=== PATIENT | female | born 1975 | race Caucasian/White ===

== ENCOUNTER 2017-02-26 18:34 | Emergency (ER) | payer SELFPAY ==
[~2017-02-26] VITALS: Ht 170.2 cm; Wt 75.0 kg
[~2017-02-26 18:34] MED LIST: IBUPROFEN600 MG PO; KEFLEX500 MG PO; NAPROSYN500 MG PO; NORCO1 TA2 PO; ORPHENADRINE100 MG PO; PAXIL40 MG PO; PERCOCET 5/325M1 TAB PO; PRENATAL FORTE PO; PROCARDIA XL30 MG PO; TYLENOL500 MG PO
[2017-02-26] MEDS ORDERED: [UNRECOGNIZED DRUG - CODE] OD (19:16)
[2017-02-26] MEDS ORDERED: PERCOCET 5/325M1 TAB PO (19:21)
[2017-02-26 19:30] VITALS: BP 135/89
== END 2017-02-26 19:30 | disposition home or self-care (01) | DRG 125 ==
LOC: ED 18:34
DX: S05.01XA Injury of conjunctiva and corneal abrasion without foreign body, right eye, initial encounter (principal); W22.09XA Striking against other stationary object, initial encounter

== ENCOUNTER 2017-04-17 12:34 | Emergency (ER) | payer OTHER ==
[~2017-04-17] VITALS: Ht 172.7 cm; Wt 75.0 kg
[~2017-04-17 12:34] MED LIST changes: +[UNRECOGNIZED DRUG - CODE] OD
[2017-04-17] MEDS ORDERED: MULTI VIT PO (13:00)
[2017-04-17] MEDS ORDERED: MOTRIN800 MG PO (13:15)
[2017-04-17 13:24] VITALS: BP 116/71
== END 2017-04-17 13:24 | disposition home or self-care (01) | DRG 563 ==
LOC: ED 12:34
DX: S83.206A Unspecified tear of unspecified meniscus, current injury, right knee, initial encounter (principal); M32.9 Systemic lupus erythematosus, unspecified; F41.9 Anxiety disorder, unspecified; J45.909 Unspecified asthma, uncomplicated; X50.3XXA Overexertion from repetitive movements, initial encounter; Y93.01 Activity, walking, marching and hiking

== ENCOUNTER 2018-03-16 21:33 | Emergency (ER) | payer BC ==
[~2018-03-16] VITALS: Ht 170.2 cm; Wt 75.0 kg
[~2018-03-16 21:33] MED LIST changes: +MOTRIN800 MG PO; +MULTI VIT PO
[2018-03-16 22:26] LABS: HEMATOCRIT 43.8 % (37.0-47.0); HEMOGLOBIN 14.2 g/dl (12.0-16.0); IMMATURE GRANULOCYTES 0.3 % (0.0-1.0); MEAN CELL VOLUME 91.3 fL CALC (80.0-100.0); MEAN CORPUSCULAR HGB 29.6 pG CALC (26.0-32.0); MEAN CORPUSCULAR HGB CONC 32.4 g/L CALC (32.0-36.0); NEUT# 4.22 thou/uL (2.00-7.15); RED BLOOD COUNT 4.8 mill/uL (4.20-5.60); URINE BILIRUBIN - DIPSTICK NEGATIVE (NEGATIVE); URINE BLOOD DIPSTICK NEGATIVE (NEGATIVE); URINE COLOR YELLOW; URINE GLUCOSE - DIPSTICK NEGATIVE (NEGATIVE); URINE KETONE NEGATIVE (NEGATIVE); URINE LEUK ESTERASE NEGATIVE (NEGATIVE); URINE NITRITE - DIPSTICK NEGATIVE (Negative); URINE PH 5.5 (4.5-8.0); URINE PROTEIN - DIPSTICK NEGATIVE (NEG-TRACE); URINE SPECIFIC GRAVITY <=1.005; URINE UROBILINOGEN - DIPSTICK 0.2 E.U./dL (0.2)
[2018-03-16 22:31] LABS: URINE CLARITY CLEAR
[2018-03-16 22:42] LABS: ANION GAP 17 (6-22 (CALC)); BUN 9 mg/dL (7-17); BUN/CREATININE RATIO 12 (12-20 (CALC)); CARBON DIOXIDE 24 mmol/l (22-30); CHLORIDE 102 mmol/l (95-108); CREATININE 0.7 mg/dL (0.5-1.0); GFR > 60 ML/MIN (>=60 (CALC)); GFR FOR AFR.AMER. > 60 ML/MIN (>=60 (CALC)); POTASSIUM 3.9 mmol/l (3.5-5.1); SODIUM 139 mmol/l (137-146)
[2018-03-16 22:45] VITALS: BP 117/73
[2018-03-16] MEDS ORDERED: PAXIL40 MG PO (22:51)
[2018-03-16] MEDS ORDERED: HYDROXYZ HCL25 MG PO (22:51)
== END 2018-03-16 23:03 | disposition home or self-care (01) | DRG 103 ==
LOC: ED 21:33
PROVIDERS: Family Medicine
DX: R51 Headache (principal); F41.9 Anxiety disorder, unspecified; I10 Essential (primary) hypertension; Z79.899 Other long term (current) drug therapy

== ENCOUNTER 2018-06-08 13:26 | Emergency (ER) | payer BC ==
[~2018-06-08] VITALS: Ht 170.2 cm; Wt 72.7 kg
[~2018-06-08 13:26] MED LIST changes: +HYDROXYZ HCL25 MG PO
[2018-06-08 14:29] LABS: HEMATOCRIT 44.5 % (37.0-47.0); HEMOGLOBIN 14.8 g/dl (12.0-16.0); IMMATURE GRANULOCYTES 0.3 % (0.0-5.0); MEAN CELL VOLUME 91.4 fL CALC (80.0-100.0); MEAN CORPUSCULAR HGB 30.4 pG CALC (26.0-32.0); MEAN CORPUSCULAR HGB CONC 33.3 g/L CALC (32.0-36.0); NEUT# 3.5 thou/uL (2.00-7.15); RED BLOOD COUNT 4.87 mill/uL (4.20-5.60); RED CELL DISTRI WIDTH 13.2 % (11.5-15.5)
[2018-06-08 14:48] LABS: ALBUMIN 4.6 g/dL (3.2-5.0); ALKALINE PHOSPHATASE 101 u/l (38-126); ANION GAP 22 (6-22 (CALC)); BUN 11 mg/dL (7-17); BUN/CREATININE RATIO 15 (12-20 (CALC)); CARBON DIOXIDE 22 mmol/l (22-30); CHLORIDE 102 mmol/l (95-108); CREATININE 0.7 mg/dL (0.5-1.0); GFR > 60 ML/MIN (>=60 (CALC)); GFR FOR AFR.AMER. > 60 ML/MIN (>=60 (CALC)); POTASSIUM 4.4 mmol/l (3.5-5.1); SGOT/AST 23 u/l (14-36); SGPT/ALT 25 u/l (9-52); SODIUM 142 mmol/l (137-146)
[2018-06-08] MEDS ORDERED: ATIVAN0.5 MG PO (14:56)
[2018-06-08 15:03] VITALS: BP 150/97
== END 2018-06-08 15:19 | disposition home or self-care (01) | DRG 880 ==
LOC: ED 13:26
PROVIDERS: Emergency Medicine
DX: F41.9 Anxiety disorder, unspecified (principal); J45.909 Unspecified asthma, uncomplicated
CPT/HCPCS: J2060

== ENCOUNTER 2018-12-13 16:36 | Emergency (ER) | payer SELFPAY ==
[~2018-12-13] VITALS: Ht 170.2 cm; Wt 77.3 kg
[~2018-12-13 16:36] MED LIST changes: +ATIVAN0.5 MG PO
[2018-12-13] MEDS ORDERED: VOLTAREN - GENE75 MG PO (18:01)
[2018-12-13] MEDS ORDERED: TRAMADOL HCL50 MG PO (18:01)
[2018-12-13 18:07] VITALS: BP 110/72
== END 2018-12-13 18:15 | disposition home or self-care (01) | DRG 538 ==
LOC: ED 16:36
DX: S76.012A Strain of muscle, fascia and tendon of left hip, initial encounter (principal); J45.909 Unspecified asthma, uncomplicated; F41.0 Panic disorder [episodic paroxysmal anxiety]; X58.XXXA Exposure to other specified factors, initial encounter

== ENCOUNTER 2019-03-04 02:41 | Emergency (ER) | payer OTHER ==
[~2019-03-04] VITALS: Ht 170.2 cm; Wt 77.2 kg
[~2019-03-04 02:41] MED LIST changes: +TRAMADOL HCL50 MG PO; +VOLTAREN - GENE75 MG PO
[2019-03-04 03:47] LABS: HEMATOCRIT 45.6 % (37.0-47.0); HEMOGLOBIN 14.7 g/dl (12.0-16.0); IMMATURE GRANULOCYTES 0.2 % (0.0-5.0); MEAN CELL VOLUME 93.4 fL CALC (80.0-100.0); MEAN CORPUSCULAR HGB 30.1 pG CALC (26.0-32.0); MEAN CORPUSCULAR HGB CONC 32.2 g/L CALC (32.0-36.0); NEUT# 6.97 thou/uL (2.00-7.15); RED BLOOD COUNT 4.88 mill/uL (4.20-5.60); RED CELL DISTRI WIDTH 12.6 % (11.5-15.5)
[2019-03-04 03:55] LABS: ALBUMIN 4.6 g/dL (3.2-5.0); ALKALINE PHOSPHATASE 88 u/l (38-126); ANION GAP 14 (6-22 (CALC)); BILIRUBIN, TOTAL 0.6 mg/dL (0.0-1.4); BUN 11 mg/dL (7-17); BUN/CREATININE RATIO 14 (12-20 (CALC)); CARBON DIOXIDE 24 mmol/l (22-30); CHLORIDE 105 mmol/l (95-108); CREATININE 0.8 mg/dL (0.5-1.0); GFR > 60 ML/MIN (>=60 (CALC)); GFR FOR AFR.AMER. > 60 ML/MIN (>=60 (CALC)); SGOT/AST 28 u/l (14-36); SODIUM 139 mmol/l (137-146)
[2019-03-04 05:10] LABS: C. DIFFICILE TOXIN A&B NEGATIVE (NEGATIVE)
[2019-03-04] MEDS ORDERED: PHENERGAN25 MG/TAB PO (05:18)
[2019-03-04] MEDS ORDERED: ZITHROMAX TRI-500 MG PO (05:18)
[2019-03-04] MEDS ORDERED: LOMOTIL2.5 MG PO (05:18)
[2019-03-04 06:39] VITALS: BP 106/72
== END 2019-03-04 06:39 | disposition home or self-care (01) | DRG 373 ==
LOC: ED 02:41
PROVIDERS: Family Medicine
DX: A04.5 Campylobacter enteritis (principal)

== ENCOUNTER 2019-04-22 10:57 | Emergency (ER) | payer OTHER ==
[~2019-04-22] VITALS: Ht 170.2 cm; Wt 80.0 kg
[~2019-04-22 10:57] MED LIST changes: +LOMOTIL2.5 MG PO; +PHENERGAN25 MG/TAB PO; +ZITHROMAX TRI-500 MG PO
[2019-04-22] MEDS ORDERED: PAROXETINE HCL40 MG PO (11:06)
[2019-04-22 11:30] VITALS: BP 130/78
== END 2019-04-22 11:30 | disposition home or self-care (01) | DRG 538 ==
LOC: ED 10:57
DX: S76.912A Strain of unspecified muscles, fascia and tendons at thigh level, left thigh, initial encounter (principal); S76.911A Strain of unspecified muscles, fascia and tendons at thigh level, right thigh, initial encounter; X50.3XXA Overexertion from repetitive movements, initial encounter; Y93.B9 Activity, other involving muscle strengthening exercises

== ENCOUNTER 2019-09-22 20:19 | Emergency (ER) | payer OTHER ==
[~2019-09-22] VITALS: Ht 170.2 cm; Wt 75.0 kg
[~2019-09-22 20:19] MED LIST changes: +PAROXETINE HCL40 MG PO
[2019-09-23] VITALS: BP 129/82
== END 2019-09-23 00:30 | disposition home or self-care (01) | DRG 313 ==
LOC: ED 20:19
DX: R07.89 Other chest pain (principal)

== ENCOUNTER 2020-01-31 | Emergency (ER) | payer OTHER ==
[2020-01-31] MEDS ORDERED: LYRICA50 MG PO (11:54)
[2020-01-31] MEDS ORDERED: PROAIR HFA108 MCG/AC IN (11:55)
[2020-01-31] MEDS ORDERED: TOBREX OPTH5 ML/BTL OU (12:36)
[2020-01-31] MEDS ORDERED: LORTAB 5/3255 MG PO (12:38)
== END 2020-01-31 12:52 | disposition home or self-care (01) | DRG 122 ==
DX: H16.001 Unspecified corneal ulcer, right eye (principal)

== ENCOUNTER 2020-03-29 18:03 | Emergency (ER) | payer OTHER ==
[~2020-03-29 18:03] MED LIST changes: +LORTAB 5/3255 MG PO; +LYRICA50 MG PO; +PROAIR HFA108 MCG/AC IN; +TOBREX OPTH5 ML/BTL OU
[2020-03-29] MEDS ORDERED: IBUPROFEN600 MG PO (18:32)
[2020-03-29] MEDS ORDERED: FLEXERIL5 M1 PO (18:32)
[2020-03-29 18:40] VITALS: BP 123/77
== END 2020-03-29 18:40 | disposition home or self-care (01) | DRG 563 ==
LOC: ED 18:03
DX: S46.911A Strain of unspecified muscle, fascia and tendon at shoulder and upper arm level, right arm, initial encounter (principal); X50.3XXA Overexertion from repetitive movements, initial encounter; Y93.G3 Activity, cooking and baking

== ENCOUNTER 2020-05-08 16:14 | Emergency (ER) | payer OTHER ==
[~2020-05-08] VITALS: Ht 170.2 cm; Wt 88.6 kg
[~2020-05-08 16:14] MED LIST changes: +FLEXERIL5 M1 PO
[2020-05-08] MEDS ORDERED: BACLOFEN20 MG PO (16:31)
[2020-05-08] MEDS ORDERED: DICLOFENAC SODI75 M1 PO (16:32)
[2020-05-08 16:44] VITALS: BP 125/75
== END 2020-05-08 16:50 | disposition home or self-care (01) | DRG 558 ==
LOC: ED 16:14
DX: M67.432 Ganglion, left wrist (principal)

== ENCOUNTER 2020-08-13 10:45 | Emergency (ER) | payer OTHER ==
[~2020-08-13] VITALS: Ht 170.2 cm; Wt 77.0 kg
[~2020-08-13 10:45] MED LIST changes: +BACLOFEN20 MG PO; +DICLOFENAC SODI75 M1 PO
[2020-08-13 11:44] LABS: URINE BILIRUBIN - DIPSTICK NEGATIVE (NEGATIVE); URINE BLOOD DIPSTICK SMALL (NEGATIVE); URINE COLOR YELLOW; URINE GLUCOSE - DIPSTICK NEGATIVE (NEGATIVE); URINE KETONE NEGATIVE (NEGATIVE); URINE LEUK ESTERASE NEGATIVE (NEGATIVE); URINE PH 6.5 (4.5-8.0); URINE PROTEIN - DIPSTICK NEGATIVE (NEG-TRACE); URINE SPECIFIC GRAVITY >=1.030; URINE UROBILINOGEN - DIPSTICK 0.2 E.U./dL (0.2)
[2020-08-13 11:53] LABS: URINE NITRITE - DIPSTICK NEGATIVE (Negative)
[2020-08-13 11:55] LABS: URINE BACTERIA FEW hpf; URINE EPITHELIAL CELLS MANY EPI/hpf (0-FEW)
[2020-08-13] MEDS ORDERED: MACROBID100 M1 PO (12:49)
[2020-08-13] MEDS ORDERED: FLEXERIL5 M1 PO (12:49)
[2020-08-13] MEDS ORDERED: LORTAB 1010 MG PO (12:49)
[2020-08-13 13:15] VITALS: BP 108/71
== END 2020-08-13 13:16 | disposition home or self-care (01) | DRG 552 ==
LOC: ED 10:45
PROVIDERS: Emergency Medicine
DX: M47.26 Other spondylosis with radiculopathy, lumbar region (principal); N39.0 Urinary tract infection, site not specified; F41.0 Panic disorder [episodic paroxysmal anxiety]; J45.909 Unspecified asthma, uncomplicated

== ENCOUNTER 2021-01-29 | Emergency (ER) | payer OTHER ==
[~2021-01-29] MED LIST changes: +LORTAB 1010 MG PO; +MACROBID100 M1 PO
[2021-01-29] MEDS ORDERED: PAXIL30 MG PO (21:14)
[2021-01-29] MEDS ORDERED: DOXYCYCL HYC100 MG PO (21:26)
== END 2021-01-29 21:39 | disposition home or self-care (01) | DRG 607 ==
DX: L73.9 Follicular disorder, unspecified (principal); J45.909 Unspecified asthma, uncomplicated; F41.0 Panic disorder [episodic paroxysmal anxiety]; M79.7 Fibromyalgia

== ENCOUNTER 2021-04-01 16:39 | Emergency (ER) | payer OTHER ==
[~2021-04-01] VITALS: Ht 170.2 cm; Wt 79.0 kg
[~2021-04-01 16:39] MED LIST changes: +DOXYCYCL HYC100 MG PO; +PAXIL30 MG PO
[2021-04-01 17:48] LABS: HEMATOCRIT 44.6 % (37.0-47.0); HEMOGLOBIN 14.1 g/dl (12.0-16.0); IMMATURE GRANULOCYTES 0.3 % (0.0-5.0); MEAN CELL VOLUME 92.1 fL CALC (80.0-100.0); MEAN CORPUSCULAR HGB 29.1 pG CALC (26.0-32.0); MEAN CORPUSCULAR HGB CONC 31.6 g/dL CAL (32.0-36.0); NEUT# 4.33 thou/uL (2.00-7.15); RED BLOOD COUNT 4.84 mill/uL (4.20-5.60); RED CELL DISTRI WIDTH 13.3 % (11.5-15.5)
[2021-04-01 18:02] LABS: ALBUMIN 4.1 g/dL (3.2-5.0); ALKALINE PHOSPHATASE 78 u/l (38-126); ANION GAP 13 (6-22 (CALC)); BILIRUBIN, TOTAL 0.5 mg/dL (0.0-1.4); BUN 9 mg/dL (7-17); BUN/CREATININE RATIO 12 (12-20 (CALC)); CARBON DIOXIDE 23 mmol/l (22-30); CHLORIDE 101 mmol/l (95-108); CREATININE 0.8 mg/dL (0.5-1.0); GFR > 60 ML/MIN (>=60 (CALC)); GFR FOR AFR.AMER. > 60 ML/MIN (>=60 (CALC)); POTASSIUM 3.9 mmol/l (3.5-5.1); SGOT/AST 29 u/l (14-36); SODIUM 134 mmol/l (137-146); TOTAL PROTEIN 7.7 g/dL (6.3-8.2)
[2021-04-01 18:13] LABS: MYOGLOBIN 29 ng/mL (0 - 62)
[2021-04-01 18:34] LABS: URINE BILIRUBIN - DIPSTICK NEGATIVE (NEGATIVE); URINE BLOOD DIPSTICK NEGATIVE (NEGATIVE); URINE COLOR YELLOW; URINE GLUCOSE - DIPSTICK NEGATIVE (NEGATIVE); URINE KETONE NEGATIVE (NEGATIVE); URINE PROTEIN - DIPSTICK NEGATIVE (NEG-TRACE); URINE UROBILINOGEN - DIPSTICK 0.2 E.U./dL (0.2)
[2021-04-01 18:36] LABS: URINE LEUK ESTERASE SMALL (NEGATIVE); URINE NITRITE - DIPSTICK NEGATIVE (Negative)
[2021-04-01 18:42] LABS: URINE RBC 0-2 RBC/hpf (0-5); URINE SQUAMOUS EPITHELIAL CELL FEW EPI/hpf (0-FEW)
[2021-04-01 21:51] VITALS: BP 137/85
== END 2021-04-01 22:06 | disposition home or self-care (01) | DRG 313 ==
LOC: ED 16:39
PROVIDERS: Emergency Medicine
DX: R07.9 Chest pain, unspecified (principal); J45.909 Unspecified asthma, uncomplicated; F41.9 Anxiety disorder, unspecified; M79.7 Fibromyalgia

== ENCOUNTER 2021-07-25 14:08 | Emergency (ER) | payer OTHER ==
[~2021-07-25] VITALS: Ht 170.2 cm; Wt 79.0 kg
[2021-07-25 14:29] VITALS: BP 124/72
[2021-07-25] MEDS ORDERED: TRAMADOL HYDROC50 M1 PO (16:24)
[2021-07-25] MEDS ORDERED: DECADRON4 MG PO (16:24)
== END 2021-07-25 16:36 | disposition home or self-care (01) | DRG 552 ==
LOC: ED 14:08
DX: M54.50 Low back pain, unspecified (principal); F41.0 Panic disorder [episodic paroxysmal anxiety]; J45.909 Unspecified asthma, uncomplicated; M79.7 Fibromyalgia

== ENCOUNTER 2022-05-02 22:24 | Emergency (ER) | payer OTHER ==
[~2022-05-02] VITALS: Ht 170.2 cm; Wt 79.0 kg
[~2022-05-02 22:24] MED LIST changes: +DECADRON4 MG PO; +TRAMADOL HYDROC50 M1 PO
[2022-05-02 22:59] LABS: HEMATOCRIT 46.3 % (37.0-47.0); HEMOGLOBIN 15.2 g/dl (12.0-16.0); IMMATURE GRANULOCYTES 0.1 % (0.0-5.0); MEAN CELL VOLUME 93.9 fL CALC (80.0-100.0); MEAN CORPUSCULAR HGB 30.8 pG CALC (26.0-32.0); MEAN CORPUSCULAR HGB CONC 32.8 g/dL CAL (32.0-36.0); NEUT# 7.77 thou/uL (2.00-7.15); RED BLOOD COUNT 4.93 mill/uL (4.20-5.60); RED CELL DISTRI WIDTH 12.2 % (11.5-15.5)
[2022-05-02 23:13] LABS: ALBUMIN 4.4 g/dL (3.2-5.0); ALKALINE PHOSPHATASE 91 u/l (38-126); ANION GAP 16 (6-22 (CALC)); BUN 9 mg/dL (7-17); BUN/CREATININE RATIO 10 (12-20 (CALC)); CARBON DIOXIDE 22 mmol/l (22-30); CHLORIDE 104 mmol/l (95-108); CPK 48 u/l (30-165); CREATININE 0.8 mg/dL (0.5-1.0); GFR FOR AFR.AMER. > 60 ML/MIN (>=60 (CALC)); GFR OTHER RACES > 60 ML/MIN (>=60 (CALC)); LIPASE 92 u/l (23-300); POTASSIUM 3.5 mmol/l (3.5-5.1); SGOT/AST 27 u/l (14-36); SODIUM 139 mmol/l (137-146); TOTAL PROTEIN 7.5 g/dL (6.3-8.2)
[2022-05-02 23:18] LABS: BILIRUBIN, TOTAL 1.2 mg/dL (0.0-1.4); MAGNESIUM 1.5 mg/dL (1.6-2.3)
[2022-05-03] MEDS ORDERED: MAGOX 400400 MG PO (01:27)
[2022-05-03 01:37] VITALS: BP 124/83
== END 2022-05-03 01:42 | disposition home or self-care (01) | DRG 392 ==
LOC: ED 22:24
PROVIDERS: Internal Medicine
DX: R10.84 Generalized abdominal pain (principal); E83.42 Hypomagnesemia; J45.909 Unspecified asthma, uncomplicated; F41.0 Panic disorder [episodic paroxysmal anxiety]; F17.200 Nicotine dependence, unspecified, uncomplicated
CPT/HCPCS: J3475

== ENCOUNTER 2022-10-05 21:12 | Emergency (ER) | payer OTHER ==
[~2022-10-05] VITALS: Ht 170.2 cm; Wt 77.3 kg
[~2022-10-05 21:12] MED LIST changes: +MAGOX 400400 MG PO
[2022-10-05] MEDS ORDERED: FLOXIN OTIC0.3 % AS (22:09)
[2022-10-05 23:26] VITALS: BP 118/78
== END 2022-10-05 23:26 | disposition home or self-care (01) | DRG 156 ==
LOC: ED 21:12
DX: H60.92 Unspecified otitis externa, left ear (principal); J45.909 Unspecified asthma, uncomplicated; F41.9 Anxiety disorder, unspecified

== ENCOUNTER 2022-10-07 10:24 | Emergency (ER) | payer OTHER ==
[~2022-10-07] VITALS: Ht 170.2 cm; Wt 77.1 kg
[~2022-10-07 10:24] MED LIST changes: +FLOXIN OTIC0.3 % AS
[2022-10-07] MEDS ORDERED: OMNICEF300 M1 PO (11:06)
[2022-10-07 11:23] VITALS: BP 129/71
[2022-10-08] MEDS ORDERED: LORTAB5 PO (03:59)
[2022-10-08] MEDS ORDERED: NAPROXEN375 MG PO (03:59)
== END 2022-10-07 11:23 | disposition home or self-care (01) | DRG 156 ==
LOC: ED 10:24
DX: H60.12 Cellulitis of left external ear (principal)

== ENCOUNTER 2022-10-08 03:37 | Emergency (ER) | payer OTHER ==
[~2022-10-08] VITALS: Ht 170.2 cm; Wt 77.0 kg
[~2022-10-08 03:37] MED LIST changes: +OMNICEF300 M1 PO
[2022-10-08 03:45] VITALS: BP 137/88
[2022-10-08] MEDS ORDERED: NAPROXEN375 MG PO (03:59)
[2022-10-08] MEDS ORDERED: LORTAB5 PO (03:59)
[2022-10-08 04:00] VITALS: BP 117/73
[2022-10-08 04:05] VITALS: BP 117/73
== END 2022-10-08 04:10 | disposition home or self-care (01) | DRG 156 ==
LOC: ED 03:37
DX: H60.92 Unspecified otitis externa, left ear (principal); F41.9 Anxiety disorder, unspecified; J45.909 Unspecified asthma, uncomplicated

== ENCOUNTER 2022-12-17 10:44 | Emergency (ER) | payer OTHER ==
[~2022-12-17] VITALS: Ht 172.7 cm; Wt 79.4 kg
[2022-12-17] VITALS (12 sets, daily range): BP systolic 110–150; BP diastolic 77–92
[~2022-12-17 10:44] MED LIST changes: +LORTAB5 PO; +NAPROXEN375 MG PO
[2022-12-17 12:49] LABS: BASO% 0.4 % (0-3); EOS% 1.5 % (0-8); HEMATOCRIT 45.4 % (37.0-47.0); HEMOGLOBIN 14.1 g/dl (12.0-16.0); IMMATURE GRANULOCYTES 0.2 % (0.0-5.0); LYMPH% 36.9 % (15-41); MEAN CELL VOLUME 92.1 fL CALC (80.0-100.0); MEAN CORPUSCULAR HGB 28.6 pG CALC (26.0-32.0); MEAN CORPUSCULAR HGB CONC 31.1 g/dL CAL (32.0-36.0); MONO% 6.1 % (2-13); NEUT# 2.89 thou/uL (2.00-7.15); NEUT% 54.9 % (42-76); RED BLOOD COUNT 4.93 mill/uL (4.20-5.60)
[2022-12-17 13:01] LABS: ALBUMIN 4.5 g/dL (3.2-5.0); ALKALINE PHOSPHATASE 83 u/l (38-126); ANION GAP 10 (6-22 (CALC)); BUN 9 mg/dL (7-17); BUN/CREATININE RATIO 10 (12-20 (CALC)); CARBON DIOXIDE 29 mmol/l (22-30); CHLORIDE 103 mmol/l (95-108); CREATININE 0.8 mg/dL (0.5-1.0); GFR FOR AFR.AMER. > 60 ML/MIN (>=60 (CALC)); GFR OTHER RACES > 60 ML/MIN (>=60 (CALC)); POTASSIUM 3.8 mmol/l (3.5-5.1); SGOT/AST 31 u/l (14-36); SODIUM 139 mmol/l (137-146); TOTAL PROTEIN 7.4 g/dL (6.3-8.2)
[2022-12-17 13:02] LABS: BILIRUBIN, TOTAL 0.6 mg/dL (0.02-1.3)
== END 2022-12-17 16:15 | disposition home or self-care (01) | DRG 312 ==
LOC: ED 10:44
PROVIDERS: Emergency Medicine
DX: I95.1 Orthostatic hypotension (principal); F41.0 Panic disorder [episodic paroxysmal anxiety]; J45.909 Unspecified asthma, uncomplicated; F17.200 Nicotine dependence, unspecified, uncomplicated

== ENCOUNTER 2023-01-24 16:54 | Emergency (ER) | payer OTHER ==
[~2023-01-24] VITALS: Ht 172.7 cm; Wt 77.1 kg
[2023-01-24 17:10] VITALS: BP 127/75
[2023-01-24 17:15] VITALS: BP 121/73
[2023-01-24 17:30] VITALS: BP 118/74
[2023-01-24 17:45] VITALS: BP 125/79
[2023-01-24] MEDS ORDERED: NAPROXEN500 MG PO (18:53)
[2023-01-24 18:57] VITALS: BP 125/79
== END 2023-01-24 19:04 | disposition home or self-care (01) | DRG 556 ==
LOC: ED 16:54
DX: M25.562 Pain in left knee (principal)

== ENCOUNTER 2023-03-17 16:05 | Emergency (ER) | payer OTHER ==
[~2023-03-17 16:05] MED LIST changes: +NAPROXEN500 MG PO
[2023-03-17] MEDS ORDERED: ULTRAM50 MG PO (22:32)
== END 2023-03-17 17:00 | disposition left against medical advice (07) | DRG 951 ==
LOC: ED 16:05 → LWOBS 16:50
DX: Z53.21 Procedure and treatment not carried out due to patient leaving prior to being seen by health care provider (principal)

== ENCOUNTER 2023-03-17 20:36 | Emergency (ER) | payer OTHER ==
[~2023-03-17] VITALS: Ht 172.7 cm; Wt 85.0 kg
[2023-03-17 21:33] LABS: URINE BILIRUBIN - DIPSTICK NEGATIVE (NEGATIVE); URINE BLOOD DIPSTICK NEGATIVE (NEGATIVE); URINE COLOR YELLOW; URINE GLUCOSE - DIPSTICK NEGATIVE (NEGATIVE); URINE KETONE NEGATIVE (NEGATIVE); URINE PROTEIN - DIPSTICK NEGATIVE (NEG-TRACE); URINE UROBILINOGEN - DIPSTICK 0.2 E.U./dL (0.2)
[2023-03-17 21:34] LABS: URINE LEUK ESTERASE MODERATE (NEGATIVE); URINE NITRITE - DIPSTICK NEGATIVE (Negative)
[2023-03-17 21:38] LABS: URINE SQUAMOUS EPITHELIAL CELL MANY EPI/hpf (0-FEW)
[2023-03-17] MEDS ORDERED: ULTRAM50 MG PO (22:32)
[2023-03-17 23:20] VITALS: BP 135/91
== END 2023-03-17 23:21 | disposition home or self-care (01) | DRG 605 ==
LOC: ED 20:36
PROVIDERS: Emergency Medicine
DX: S00.03XA Contusion of scalp, initial encounter (principal); W22.09XA Striking against other stationary object, initial encounter; Y93.89 Activity, other specified; Y92.511 Restaurant or cafe as the place of occurrence of the external cause; Y99.0 Civilian activity done for income or pay

== ENCOUNTER 2023-04-17 22:29 | Emergency (ER) | payer OTHER ==
[~2023-04-17] VITALS: Ht 172.7 cm; Wt 82.0 kg
[~2023-04-17 22:29] MED LIST changes: +ULTRAM50 MG PO
[2023-04-17] MEDS ORDERED: CLINDAMYCIN300 M1 PO (22:57)
[2023-04-17 23:16] VITALS: BP 126/85
== END 2023-04-17 23:16 | disposition home or self-care (01) | DRG 156 ==
LOC: ED 22:29
DX: H60.93 Unspecified otitis externa, bilateral (principal); J45.909 Unspecified asthma, uncomplicated; F41.9 Anxiety disorder, unspecified; M79.7 Fibromyalgia

== ENCOUNTER 2023-11-28 23:46 | Emergency (ER) | payer OTHER ==
[~2023-11-28 23:46] MED LIST changes: +CLINDAMYCIN300 M1 PO
[2023-11-29 00:45] VITALS: BP 126/86
== END 2023-11-29 00:45 | disposition left against medical advice (07) | DRG 951 ==
LOC: ED 23:46 → LWOBS 11-29 00:45
DX: Z53.21 Procedure and treatment not carried out due to patient leaving prior to being seen by health care provider (principal)

== ENCOUNTER 2023-12-16 03:16 | Emergency (ER) | payer OTHER ==
[~2023-12-16] VITALS: Ht 172.7 cm; Wt 79.0 kg
[2023-12-16] VITALS (18 sets, daily range): BP systolic 102–137; BP diastolic 65–88
[2023-12-16] MEDS ORDERED: ASPIRIN 81 MG/TAB PO PRN (03:30)
[2023-12-16 05:04] LABS: BASO% 0.3 % (0-3); EOS% 1.6 % (0-8); HEMATOCRIT 41.7 % (37.0-47.0); HEMOGLOBIN 13.4 g/dl (12.0-16.0); IMMATURE GRANULOCYTES 0.1 % (0.0-5.0); LYMPH% 40.9 % (15-41); MEAN CELL VOLUME 90.7 fL CALC (80.0-100.0); MEAN CORPUSCULAR HGB 29.1 pG CALC (26.0-32.0); MEAN CORPUSCULAR HGB CONC 32.1 g/dL CAL (32.0-36.0); MONO% 7.5 % (2-13); NEUT# 3.32 thou/uL (2.00-7.15); NEUT% 49.6 % (42-76); RED BLOOD COUNT 4.6 mill/uL (4.20-5.60); RED CELL DISTRI WIDTH 14.4 % (11.5-15.5)
[2023-12-16 05:24] LABS: ALBUMIN 4.1 g/dL (3.2-5.0); ALKALINE PHOSPHATASE 82 u/l (38-126); ANION GAP 10 (6-22 (CALC)); BILIRUBIN, TOTAL 0.5 mg/dL (0.02-1.3); BUN 8 mg/dL (7-17); BUN/CREATININE RATIO 10 (12-20 (CALC)); CARBON DIOXIDE 26 mmol/l (22-30); CHLORIDE 105 mmol/l (95-108); CREATININE 0.8 mg/dL (0.5-1.0); GFR FOR AFR.AMER. > 60 ML/MIN (>=60 (CALC)); GFR OTHER RACES > 60 ML/MIN (>=60 (CALC)); POTASSIUM 3.7 mmol/l (3.5-5.1); SGOT/AST 30 u/l (14-36); SODIUM 138 mmol/l (137-146); TOTAL PROTEIN 7.3 g/dL (6.3-8.2)
== END 2023-12-16 07:25 | disposition home or self-care (01) | DRG 313 ==
LOC: ED 03:16
PROVIDERS: Family Medicine
DX: R07.89 Other chest pain (principal); F41.0 Panic disorder [episodic paroxysmal anxiety]; J45.909 Unspecified asthma, uncomplicated

== ENCOUNTER 2024-05-11 13:24 | Emergency (ER) | payer OTHER ==
[~2024-05-11] VITALS: Ht 172.7 cm; Wt 79.3 kg
[2024-05-11 13:48] VITALS: BP 120/81
[2024-05-11 14:00] VITALS: BP 124/77
[2024-05-11 14:15] VITALS: BP 128/92
[2024-05-11 14:45] VITALS: BP 114/76
[2024-05-11 15:00] VITALS: BP 119/75
[2024-05-11] MEDS ORDERED: PREDNISONE20 MG PO (15:34)
[2024-05-11] MEDS ORDERED: PROVENTIL HFA108 MCG PO (15:41)
[2024-05-11 16:00] VITALS: BP 119/75
== END 2024-05-11 16:03 | disposition home or self-care (01) | DRG 203 ==
LOC: ED 13:24
DX: J45.909 Unspecified asthma, uncomplicated (principal); Z20.822 Contact with and (suspected) exposure to COVID-19

== ENCOUNTER 2024-06-12 15:01 | Emergency (ER) | payer OTHER ==
[~2024-06-12] VITALS: Ht 172.7 cm; Wt 72.5 kg
[~2024-06-12 15:01] MED LIST changes: +PREDNISONE20 MG PO; +PROVENTIL HFA108 MCG PO
[2024-06-12 15:06] VITALS: BP 143/98
[2024-06-12 15:15] VITALS: BP 132/86
[2024-06-12] MEDS ORDERED: ERYTHROMYCIN O3.5 GM OU (15:20)
[2024-06-12 15:30] VITALS: BP 122/77
[2024-06-12 15:45] VITALS: BP 117/71
[2024-06-12 16:33] VITALS: BP 117/71
== END 2024-06-12 16:33 | disposition home or self-care (01) | DRG 125 ==
LOC: ED 15:01
DX: H10.9 Unspecified conjunctivitis (principal)

== ENCOUNTER 2024-06-22 12:03 | Emergency (ER) | payer OTHER ==
[~2024-06-22] VITALS: Ht 172.7 cm; Wt 79.0 kg
[~2024-06-22 12:03] MED LIST changes: +ERYTHROMYCIN O3.5 GM OU
[2024-06-22 12:11] VITALS: BP 121/85
[2024-06-22 12:15] VITALS: BP 128/82
[2024-06-22] MEDS ORDERED: LIDOCAINE VISCOUS 2% 15 ML UDC PO ONE (12:20)
[2024-06-22 12:30] VITALS: BP 111/66
[2024-06-22 12:45] VITALS: BP 105/64
[2024-06-22 12:57] VITALS: BP 105/64
== END 2024-06-22 12:57 | disposition home or self-care (01) | DRG 156 ==
LOC: ED 12:03
PROC: 09C47ZZ Extirpation of Matter from Left External Auditory Canal, Via Natural or Artificial Opening (ICD-10-PCS; principal; 2024-06-22)
DX: T16.2XXA Foreign body in left ear, initial encounter (principal); J45.909 Unspecified asthma, uncomplicated; F41.0 Panic disorder [episodic paroxysmal anxiety]; W44.F9XA Other object of natural or organic material, entering into or through a natural orifice, initial encounter